=== PATIENT | female | born 1995 | race Caucasian/White ===

== ENCOUNTER 2016-11-07 18:55 | Emergency (ER) | payer OTHER ==
[~2016-11-07 18:55] MED LIST: ACET50TA PO; IBUP-1114 PO; PRENTAB9 PO
--- NOTE | 2016-11-07 20:33 | EDDOCDS ---
Physician Documentation [facility] Name: Evelyne Aranda Age: 21 yrs Sex: Female : 1995 Arrival Date: 11/07/2016 Time: 18:55 Bed 11 Private MD: Disposition: 11/07 20:24 Critical Care: Critical care not applicable. le Disposition: 11/07/16 20:20 Discharged to Home/Self Care. Impression: Dizziness and giddiness - near syncope. - Condition is Stable. - Discharge Instructions: Dizziness, Near-Syncope. - Medication Reconciliation, Local Pharmacy Hours form. - Follow up: [facility] - Adults; When: Call to arrange an appointment; Reason: Recheck today's complaints, Continuance of care. - Problem is an acute exacerbation. - Symptoms are resolved. - Notes: Keep hydrated Make sure you're eating nutritious regular meals Return to the ED for any further concerns Historical: - Allergies: No known drug Allergies; - Home Meds: 1. antidepressant - PMHx: Depression; - PSHx: none; - Social history: Smoking status: Patient states former smoker of tobacco. No barriers to communication noted, The patient speaks fluent [place], Speaks appropriately for age. - Family history: Not pertinent. - : The pt / caregiver states he / she is not on anticoagulants. Home medication list is obtained from the patient, [employer] import data. - Exposure Risk Screening:: None identified. 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 9 in. (175.26 cm) (R); 19:16 Temp 98.6(TE); js15 19:20 Pulse 60 MON; Pulse Ox 99% ; js15 19:20 BP 103 / 55 RA Supine (auto/reg); js15 19:28 Pulse 58 MON; Pulse Ox 99% ; js15 19:28 BP 104 / 62 RA Sitting (auto/reg); js15 19:29 Pulse 62 MON; Pulse Ox 100% ; js15 19:30 BP 105 / 62 (auto/); js15 19:33 Pulse 58 MON; Pulse Ox 100% ; js15 19:33 BP 111 / 63 RA Standing (auto/reg); js15 19:45 BP 105 / 61 (auto/); js15 19:45 Pulse 62 MON; Pulse Ox 100% ; js15 20:00 BP 110 / 61 (auto/); js15 20:00 Pulse 60 MON; Pulse Ox 99% ; js15 20:15 BP 117 / 60 (auto/); js15 20:15 Pulse 56 MON; Pulse Ox 99% ; js15 20:26 BP 113 / 67 (auto/); js15 20:26 Pulse 58 MON; Resp 20; Temp 98.7(TE); Pulse Ox 98% on R/A; Pain 0/10; js15 19:02 Body Mass Index 20.67 (63.50 kg, 175.26 cm) kr3 MDM: 19:28 Orthostatic VS ordered. le 19:28 UCG by Nursing ordered. le 19:29 ECG WITH READING ER PHYS+CARDIAG ordered. EDMS 19:30 Chest, 2 View (pa\E\lat) Ordered. EDMS 20:16 Financial registration complete. dimitri Point of Care Testing: Urine : 19:51 hCG Reading: Negative; Control Reading: Positive; js15 Ranges: Signatures: Dispatcher [employer] EDYamini Rowe, GEO ORAL HEALTH THERAPISTOlga Rios,RN RN Lakesha Chang MTDD
--- NOTE | 2016-11-07 20:33 | EDDOCDS ---
Nurse's Notes [facility] Name: Evelyne Aranda Age: 21 yrs Sex: Female : 1995 Arrival Date: 11/07/2016 Time: 18:55 Bed 11 Private MD: Diagnosis: Dizziness and giddiness-near syncope Presentation: 11/07 19:06 Presenting complaint: EMS states: Pt was at work and walking to the bathroom and became js15 dizzy and had blurred vision; denies syncope but states that she sat down to keep from falling. Adult Sepsis Screening: The patient does not have new or worsening altered mentation. Patient's respiratory rate is less than 22. Systolic blood pressure is greater than 100. Suicide/Homicide risk assessment- the patient denies having any suicidal and/or homicidal ideations and does not present with any other emotional, behavioral or mental health complaints. Transition of care: patient was not received from another setting of care. 19:06 Acuity: JORDON Level 3 [facility] 19:06 Method Of Arrival: Ambulance [facility] 19:16 Adult Sepsis Screening: Patient has a qSOFA score of 0- Negative Sepsis Screen. js15 Status: Patient is not a restaurant service manager or dependent. Triage Assessment: 19:08 General: Appears in no apparent distress, Behavior is appropriate for age, cooperative. js15 Pain: Denies pain. HIV screening NA for this visit Offered previously. The patient is triaged at the bedside. See Assessment in Nurses Notes section of ED record. Neurological: Level of Consciousness is awake, alert, obeys commands, Oriented to person, place, time. Respiratory: Airway is patent Respiratory effort is even, unlabored, Respiratory pattern is regular, symmetrical. Derm: Skin is dry, Skin is pale, Skin temperature is warm. 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 antidepressant - PMHx: Depression; - PSHx: none; - Social history: Smoking status: Patient states former smoker of tobacco. No barriers to communication noted, The patient speaks fluent Burmese, Speaks appropriately for age. - Family history: Not pertinent. - : The pt / caregiver states he / she is not on anticoagulants. Home medication list is obtained from the patient, [email or web address] import data. - Exposure Risk Screening:: None identified. Screenin:12 Screening information is obtained from the patient. Fall risk: No risks identified. js15 Assistance ADL's: requires no assistance with activities of daily living. Abuse/DV Screen: The patient / caregiver reports he/she is: not in a situation that causes fear, pain or injury. Nutritional screening: No deficits noted. Advance Directives: There is no active DNR order. home support is adequate. Assessment: 19:30 General: see triage note. js15 20:28 Reassessment: Patient appears in no apparent distress at this time. Patient denies pain js15 at this time. Pt resting on stretcher with significant other at bedside; respirations even and unlabored; skin pale, warm, dry; cardiac rhythm is regular. . Vital Signs: 19:02 BP 128 / 65; Pulse 68; Pulse Ox 99% on R/A; Weight 63.5 kg (R); Height 5 ft. 9 in. kr3 (175.26 cm) (R); 19:16 Temp 98.6(TE); js15 19:20 Pulse 60 MON; Pulse Ox 99% ; js15 19:20 BP 103 / 55 RA Supine (auto/reg); js15 19:28 Pulse 58 MON; Pulse Ox 99% ; js15 19:28 BP 104 / 62 RA Sitting (auto/reg); js15 19:29 Pulse 62 MON; Pulse Ox 100% ; js15 19:30 BP 105 / 62 (auto/); js15 19:33 Pulse 58 MON; Pulse Ox 100% ; js15 19:33 BP 111 / 63 RA Standing (auto/reg); js15 19:45 BP 105 / 61 (auto/); js15 19:45 Pulse 62 MON; Pulse Ox 100% ; js15 20:00 BP 110 / 61 (auto/); js15 20:00 Pulse 60 MON; Pulse Ox 99% ; js15 20:15 BP 117 / 60 (auto/); js15 20:15 Pulse 56 MON; Pulse Ox 99% ; js15 20:26 BP 113 / 67 (auto/); js15 20:26 Pulse 58 MON; Resp 20; Temp 98.7(TE); Pulse Ox 98% on R/A; Pain 0/10; js15 19:02 Body Mass Index 20.67 (63.50 kg, 175.26 cm) kr3 Vitals: 19:02 Log In Time N/A - ambulance arrival. kr3 ED Course: 19:01 Patient visited by Irene Pablo, Credit Investigator. ml3 19:01 Patient moved to Waiting ml3 19:01 Patient moved to 11 kr3 19:07 Triage Initiated js15 19:16 [facility] Campbell [facility] le 19:30 Patient visited by Yamini Campbell FNP. le 19:30 Patient visited by Yamini Campbell FNP. le 19:33 EKG done. (by ED staff). Reviewed by Yamini UGARDADO. waqar 20:20 [facility] is Referral Physician. le 20:26 The patient / caregiver is instructed regarding the plan of care and ED course. js15 20:26 No IV's were initiated during this patient's visit. No procedures done that require js15 assistance. Point of Care Testing: Urine : 19:51 hCG Reading: Negative; Control Reading: Positive; js15 Ranges: Order Results: There are currently no results for this order. Outcome: 20:20 Discharge ordered by Provider. le 20:26 Discharge Assessment: Patient awake, alert and oriented x 3. No cognitive and/or js15 functional deficits noted. Patient verbalized understanding of disposition instructions. patient administered narcotics - no. The following High Risk Discharge criteria are identified: None. Discharged to home ambulatory, with significant other. Condition: unchanged. Discharge instructions given to patient, Instructed on discharge instructions, follow up and referral plans. Demonstrated understanding of instructions, Pt was receptive of discharge instructions/ teaching. No special radiology studies were completed. Property sent home with patient. 20:32 Patient left the ED. js15 Signatures: Irene Pablo, Credit Investigator Unit ml3 Janell Negrete,RN RN Yamini Lombardi FNP FNP le Ewald, Destiny, FABRIZIO MARKETING SEGMENT MANAGER Olga SantoyoRN RN js15 MTDD
--- NOTE | 2016-11-08 06:37 | ECGEPIP ---
Stationary ECG Study [facility] - ED Test Date: 2016-11-07 Pat Name: DEBORA CARRILLO Department: Room: - Gender: F City Superintendent: MurguiaB: 1995 Requested By: LESLIE GUARDADO Order Number: [id number] Reading MD: Zak Chavez Measurements Intervals [place] Rate: 55 P: 37 [place]: 131 QRS: 42 QRSD: 87 T: 23 QT: 418 QTc: 402 Interpretive Statements SINUS BRADYCARDIA BENIGN EARLY REPOLARIZATION NO PRIORS Electronically Signed On 11-08-2016 6:37:19 EST by Zak Chavez
--- NOTE | 2016-11-08 08:24 | REP ---
Chest x-ray: Two views. History: Near syncope. . Comparison study: No comparison . Findings: The lungs are well inflated and free of infiltrate. The pleural angles are sharp. The heart size is normal. Pulmonary vasculature is not increased. No significant bony abnormality is seen. Incidental note is made of an azygos lobe. EKG monitoring electrodes are seen. Impression: Negative chest x-ray. Signed by Marshall Thomas MD 11/08/2016 08:15 A
--- NOTE | 2016-11-09 21:33 | EDDOCDS ---
Physician Documentation [facility] Name: Evelyne Aranda Age: 21 yrs Sex: Female : 1995 Arrival Date: 11/07/2016 Time: 18:55 Bed 11 Private MD: Disposition: 11/07 20:24 Critical Care: Critical care not applicable. le Disposition: 11/07/16 20:20 Discharged to Home/Self Care. Impression: Dizziness and giddiness - near syncope. - Condition is Stable. - Discharge Instructions: Dizziness, Near-Syncope. - Medication Reconciliation, Local Pharmacy Hours form. - Follow up: [facility] - Adults; When: Call to arrange an appointment; Reason: Recheck today's complaints, Continuance of care. - Problem is an acute exacerbation. - Symptoms are resolved. - Notes: Keep hydrated Make sure you're eating nutritious regular meals Return to the ED for any further concerns Historical: - Allergies: No known drug Allergies; - Home Meds: 1. antidepressant - PMHx: Depression; - PSHx: none; - Social history: Smoking status: Patient states former smoker of tobacco. No barriers to communication noted, The patient speaks fluent Colombian, Speaks appropriately for age. - Family history: Not pertinent. - : The pt / caregiver states he / she is not on anticoagulants. Home medication list is obtained from the patient, [employer] import data. - Exposure Risk Screening:: None identified. 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 9 in. (175.26 cm) (R); 19:16 Temp 98.6(TE); js15 19:20 Pulse 60 MON; Pulse Ox 99% ; js15 19:20 BP 103 / 55 RA Supine (auto/reg); js15 19:28 Pulse 58 MON; Pulse Ox 99% ; js15 19:28 BP 104 / 62 RA Sitting (auto/reg); js15 19:29 Pulse 62 MON; Pulse Ox 100% ; js15 19:30 BP 105 / 62 (auto/); js15 19:33 Pulse 58 MON; Pulse Ox 100% ; js15 19:33 BP 111 / 63 RA Standing (auto/reg); js15 19:45 BP 105 / 61 (auto/); js15 19:45 Pulse 62 MON; Pulse Ox 100% ; js15 20:00 BP 110 / 61 (auto/); js15 20:00 Pulse 60 MON; Pulse Ox 99% ; js15 20:15 BP 117 / 60 (auto/); js15 20:15 Pulse 56 MON; Pulse Ox 99% ; js15 20:26 BP 113 / 67 (auto/); js15 20:26 Pulse 58 MON; Resp 20; Temp 98.7(TE); Pulse Ox 98% on R/A; Pain 0/10; js15 19:02 Body Mass Index 20.67 (63.50 kg, 175.26 cm) kr3 MDM: 19:28 Orthostatic VS ordered. le 19:28 UCG by Nursing ordered. le 19:29 ECG WITH READING ER PHYS+CARDIAG ordered. EDMS 19:30 Chest, 2 View (pa\E\lat) Ordered. EDMS 20:16 Financial registration complete. gjb 21:21 [facility] Payment Agreement was scanned into [employer] and attached to record. gb 21:55 T-Sheet-- Draft Copy was scanned into [employer] and attached to record. r 11/08 10:25 ECG/EKG was scanned into [employer] and attached to record. elizabeth Point of Care Testing: Urine : 11/07 19:51 hCG Reading: Negative; Control Reading: Positive; js15 Ranges: Signatures: Dispatcher [employer]Host EDMS Dia Woo, Reg Reg Yamini Hill, Olga Hogan,RN RN js15 Lakesha Sahu Kathie klr The chart was reviewed and I authenticate all verbal orders and agree with the evaluation and treatment provided.Attachments: 21:21 [facility] [place] gb 21:55 T-Sheet-- Draft Copy r 11/08 10:25 ECG/EKG gb Chart Complete MTDD
--- NOTE | 2016-11-09 21:33 | EDDOCDS ---
Physician Documentation Name: Evelyne Aranda Age: 21 yrs Sex: Female : 1995 Arrival Date: 11/07/2016 Time: 18:55 Bed 11 Private MD: Disposition: 11/07 20:24 Critical Care: Critical care not applicable. le Disposition: 11/07/16 20:20 Discharged to Home/Self Care. Impression: Dizziness and giddiness - near syncope. - Condition is Stable. - Discharge Instructions: Dizziness, Near-Syncope. - Medication Reconciliation, Local Pharmacy Hours form. - Follow up: [facility] - Adults; When: Call to arrange an appointment; Reason: Recheck today's complaints, Continuance of care. - Problem is an acute exacerbation. - Symptoms are resolved. - Notes: Keep hydrated Make sure you're eating nutritious regular meals Return to the ED for any further concerns Historical: - Allergies: No known drug Allergies; - Home Meds: 1. antidepressant - PMHx: Depression; - PSHx: none; - Social history: Smoking status: Patient states former smoker of tobacco. No barriers to communication noted, The patient speaks fluent Trinidadian, Speaks appropriately for age. - Family history: Not pertinent. - : The pt / caregiver states he / she is not on anticoagulants. Home medication list is obtained from the patient, [employer] import data. - Exposure Risk Screening:: None identified. 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 9 in. (175.26 cm) (R); 19:16 Temp 98.6(TE); js15 19:20 Pulse 60 MON; Pulse Ox 99% ; js15 19:20 BP 103 / 55 RA Supine (auto/reg); js15 19:28 Pulse 58 MON; Pulse Ox 99% ; js15 19:28 BP 104 / 62 RA Sitting (auto/reg); js15 19:29 Pulse 62 MON; Pulse Ox 100% ; js15 19:30 BP 105 / 62 (auto/); js15 19:33 Pulse 58 MON; Pulse Ox 100% ; js15 19:33 BP 111 / 63 RA Standing (auto/reg); js15 19:45 BP 105 / 61 (auto/); js15 19:45 Pulse 62 MON; Pulse Ox 100% ; js15 20:00 BP 110 / 61 (auto/); js15 20:00 Pulse 60 MON; Pulse Ox 99% ; js15 20:15 BP 117 / 60 (auto/); js15 20:15 Pulse 56 MON; Pulse Ox 99% ; js15 20:26 BP 113 / 67 (auto/); js15 20:26 Pulse 58 MON; Resp 20; Temp 98.7(TE); Pulse Ox 98% on R/A; Pain 0/10; js15 19:02 Body Mass Index 20.67 (63.50 kg, 175.26 cm) kr3 MDM: 19:28 Orthostatic VS ordered. le 19:28 UCG by Nursing ordered. le 19:29 ECG WITH READING ER PHYS+CARDIAG ordered. EDMS 19:30 Chest, 2 View (pa\E\lat) Ordered. EDMS 20:16 Financial registration complete. gjb 21:21 [facility] Payment Agreement was scanned into [employer] and attached to record. gb 21:55 T-Sheet-- Draft Copy was scanned into [employer] and attached to record. r 11/08 10:25 ECG/EKG was scanned into [employer] and attached to record. elizabeth Point of Care Testing: Urine : 11/07 19:51 hCG Reading: Negative; Control Reading: Positive; js15 Ranges: Signatures: Dispatcher [employer] EDMS Dia Woo, Reg Reg Yamini Hill, Olga Hogan,RN RN js15 Lakesha Sahu Kathie klr The chart was reviewed and I authenticate all verbal orders and agree with the evaluation and treatment provided.Attachments: 21:21 [facility] Payment Agreement gb 21:55 T-Sheet-- Draft Copy r 11/08 10:25 ECG/EKG gb Chart Complete MTDD
--- NOTE | 2016-11-09 21:33 | EDDOCDS ---
Nurse's Notes [facility] Name: Evelyne Aranda Age: 21 yrs Sex: Female : 1995 Arrival Date: 11/07/2016 Time: 18:55 Bed 11 Private MD: Diagnosis: Dizziness and giddiness-near syncope Presentation: 11/07 19:06 Presenting complaint: EMS states: Pt was at work and walking to the bathroom and became js15 dizzy and had blurred vision; denies syncope but states that she sat down to keep from falling. Adult Sepsis Screening: The patient does not have new or worsening altered mentation. Patient's respiratory rate is less than 22. Systolic blood pressure is greater than 100. Suicide/Homicide risk assessment- the patient denies having any suicidal and/or homicidal ideations and does not present with any other emotional, behavioral or mental health complaints. Transition of care: patient was not received from another setting of care. 19:06 Acuity: JORDON Level 3 [facility] 19:06 Method Of Arrival: Ambulance [facility] 19:16 Adult Sepsis Screening: Patient has a qSOFA score of 0- Negative Sepsis Screen. 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 Triage Assessment: 19:08 General: Appears in no apparent distress, Behavior is appropriate for age, cooperative. js15 Pain: Denies pain. HIV screening NA for this visit Offered previously. The patient is triaged at the bedside. See Assessment in Nurses Notes section of ED record. Neurological: Level of Consciousness is awake, alert, obeys commands, Oriented to person, place, time. Respiratory: Airway is patent Respiratory effort is even, unlabored, Respiratory pattern is regular, symmetrical. Derm: Skin is dry, Skin is pale, Skin temperature is warm. 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 antidepressant - PMHx: Depression; - PSHx: none; - Social history: Smoking status: Patient states former smoker of tobacco. No barriers to communication noted, The patient speaks fluent Slovenian, Speaks appropriately for age. - Family history: Not pertinent. - : The pt / caregiver states he / she is not on anticoagulants. Home medication list is obtained from the patient, [employer] import data. - Exposure Risk Screening:: None identified. Screenin:12 Screening information is obtained from the patient. Fall risk: No risks identified. js15 Assistance ADL's: requires no assistance with activities of daily living. Abuse/DV Screen: The patient / caregiver reports he/she is: not in a situation that causes fear, pain or injury. Nutritional screening: No deficits noted. Advance Directives: There is no active DNR order. home support is adequate. Assessment: 19:30 General: see triage note. js15 20:28 Reassessment: Patient appears in no apparent distress at this time. Patient denies pain js15 at this time. Pt resting on stretcher with significant other at bedside; respirations even and unlabored; skin pale, warm, dry; cardiac rhythm is regular. . Vital Signs: 19:02 BP 128 / 65; Pulse 68; Pulse Ox 99% on R/A; Weight 63.5 kg (R); Height 5 ft. 9 in. kr3 (175.26 cm) (R); 19:16 Temp 98.6(TE); js15 19:20 Pulse 60 MON; Pulse Ox 99% ; js15 19:20 BP 103 / 55 RA Supine (auto/reg); js15 19:28 Pulse 58 MON; Pulse Ox 99% ; js15 19:28 BP 104 / 62 RA Sitting (auto/reg); js15 19:29 Pulse 62 MON; Pulse Ox 100% ; js15 19:30 BP 105 / 62 (auto/); js15 19:33 Pulse 58 MON; Pulse Ox 100% ; js15 19:33 BP 111 / 63 RA Standing (auto/reg); js15 19:45 BP 105 / 61 (auto/); js15 19:45 Pulse 62 MON; Pulse Ox 100% ; js15 20:00 BP 110 / 61 (auto/); js15 20:00 Pulse 60 MON; Pulse Ox 99% ; js15 20:15 BP 117 / 60 (auto/); js15 20:15 Pulse 56 MON; Pulse Ox 99% ; js15 20:26 BP 113 / 67 (auto/); js15 20:26 Pulse 58 MON; Resp 20; Temp 98.7(TE); Pulse Ox 98% on R/A; Pain 0/10; js15 19:02 Body Mass Index 20.67 (63.50 kg, 175.26 cm) kr3 Vitals: 19:02 Log In Time N/A - ambulance arrival. kr3 ED Course: 19:01 Patient visited by Irene Pablo, Cordwainer. ml3 19:01 Patient moved to Waiting ml3 19:01 Patient moved to 11 kr3 19:07 Triage Initiated js15 19:16 Yamini Campbell FNP is PHCP. le 19:30 Patient visited by Yamini Campbell FNP. le 19:30 Patient visited by Yamini Campbell FNP. le 19:33 EKG done. (by ED staff). Reviewed by Yamini GUARDADO. waqar 20:20 [facility] is Referral Physician. le 20:26 The patient / caregiver is instructed regarding the plan of care and ED course. js15 20:26 No IV's were initiated during this patient's visit. No procedures done that require js15 assistance. 21:21 Patient name changed from Evelyne\S\R\S\Rosi\S\ to Evelyne\S\Jo\S\Rosi. EDMS 21:21 [facility] Payment Agreement was scanned into [employer] and attached to record. 21:55 T-Sheet-- Draft Copy was scanned into [employer] and attached to record. klr 11/08 06:54 EKG-ADULT Returned. EDMS 08:45 Chest, 2 View (pa\E\lat) Returned. EDMS 10:25 ECG/EKG was scanned into [employer] and attached to record. gb Point of Care Testing: Urine : 11/07 19:51 hCG Reading: Negative; Control Reading: Positive; js15 Ranges: Order Results: Radiology Order: EKG-ADULT Test: EKG-ADULT REASON FOR EXAMINATION: near syncope; Stationary ECG Study; [facility] - ED; ; Test Date: 2016-11-07; Pat Name: EVELYNE ARANDA Department:; Room: -; Gender: F Ob/Gyn Doctor: genoveva; : 1995 Requested By: YAMINI GUARDADO; Order Number: [id number] Reading MD: Zak Chavez; Measurements; Intervals [place]; Rate: 55 P: 37; [place]: 131 QRS: 42; QRSD: 87 T: 23; QT: 418; QTc: 402; Interpretive Statements; SINUS BRADYCARDIA; BENIGN EARLY REPOLARIZATION; NO PRIORS; Electronically Signed On 11-08-2016 6:37:19 EST by Zak Chavez; Radiology Order: Chest, 2 View (pa\E\lat) Test: Chest, 2 View (pa\E\lat) REASON FOR EXAMINATION: near syncope; Chest x-ray: Two views.; ; History: Near syncope. .; ; Comparison study: No comparison .; ; Findings: The lungs are well inflated and free of infiltrate. The pleural; angles are sharp. The heart size is normal. Pulmonary vasculature is not; increased. No significant bony abnormality is seen. Incidental note is made of; an azygos lobe. EKG monitoring electrodes are seen.; ; Impression:; ; Negative chest x-ray.; ; ; Signed by; Marshall Thomas MD 11/08/2016 08:15 A; Outcome: 20:20 Discharge ordered by Provider. le 20:26 Discharge Assessment: Patient awake, alert and oriented x 3. No cognitive and/or js15 functional deficits noted. Patient verbalized understanding of disposition instructions. patient administered narcotics - no. The following High Risk Discharge criteria are identified: None. Discharged to home ambulatory, with significant other. Condition: unchanged. Discharge instructions given to patient, Instructed on discharge instructions, follow up and referral plans. Demonstrated understanding of instructions, Pt was receptive of discharge instructions/ teaching. No special radiology studies were completed. Property sent home with patient. 20:32 Patient left the ED. js15 Signatures: Dispatcher [employer] EDMS Dia Woo, Reg Reg Irene Pablo, Cordwainer Unit ml3 Janell Negrete,RN RN kr3 Yamini Campbell, BLACK MILL OPERATOR BLACK MILL OPERATOR Susana Gamble, GAME PROGRAMMER GAME PROGRAMMER Olga Santoyo,RN RN js15 Danita Ramirez Chart Complete MTDD
== END 2016-11-07 20:32 | disposition home or self-care (01) ==
LOC: M ED 18:55
DX: R55 Syncope and collapse (principal); R42 Dizziness and giddiness; F32.9 Major depressive disorder, single episode, unspecified; Z87.891 Personal history of nicotine dependence

== ENCOUNTER → 2017-07-11 | Outpatient (CLI) | payer OTHER ==
[2017-07-11 12:34] LABS: BASO % 0.7 % (0.0-1.0); EOS # 0.2 10^3/uL (0.0-0.50); EOS % 4.3 % (0.0-3.0); IMMATURE GRANULOCYTE % 0.2 % (0-0); LYMPH # 1.5 10^3/uL (1.5-6.5); LYMPH % 28.3 % (24.0-44.0); MEAN CORPUSCULAR HEMOGLOBIN 30.1 pg (27.0-33.0); MEAN CORPUSCULAR HGB CONC 33.6 g/dl (32.0-36.5); MEAN CORPUSCULAR VOLUME 89.6 fl (80.0-96.0); MONO # 0.3 10^3/uL (0.0-0.8); MONO % 5.8 % (0.0-5.0); NEUTROPHILS # 3.2 10^3/uL (1.8-7.7); NEUTROPHILS % 60.7 % (36.0-66.0); RED CELL DISTRIBUTION WIDTH 13.2 % (11.5-14.5); WHITE BLOOD COUNT 5.3 10^3/uL (4.0-10.0)
[2017-07-11 13:09] LABS: ALBUMIN 3.5 GM/DL (3.2-5.2); ALBUMIN/GLOBULIN RATIO 0.97 (1.00-1.93); ALKALINE PHOSPHATASE 70 U/L (45-117); ALT/SGPT 17 U/L (12-78); ANION GAP 6 MEQ/L (8-16); AST/SGOT 7 U/L (15-37); BILIRUBIN,TOTAL 0.2 MG/DL (0.2-1.0); BLOOD UREA NITROGEN 11 MG/DL (7-18); CALCIUM LEVEL 8.6 MG/DL (8.5-10.1); CARBON DIOXIDE LEVEL 26 MEQ/L (21-32); CHLORIDE LEVEL 107 MEQ/L (98-107); CHOLESTEROL LEVEL 106 MG/DL (<200); FREE T4 1.08 NG/DL (0.76-1.46); GLOMERULAR FILTRATION RATE > 60.0 (>60); GLUCOSE, FASTING 91 MG/DL (70-105); POTASSIUM SERUM 4.2 MEQ/L (3.5-5.1); SODIUM LEVEL 139 MEQ/L (136-145); TOTAL PROTEIN 7.1 GM/DL (6.4-8.2); TRIGLYCERIDES LEVEL 37 MG/DL (<150)
== END ==
LOC: M LAB 11:49
PROVIDERS: ATTEND Physician Assistant
DX: Z00.00 Encounter for general adult medical examination without abnormal findings (principal)

== ENCOUNTER → 2017-12-18 | Outpatient (CLI) | payer OTHER ==
[2017-12-18 14:37] LABS: CONTROL LINE HCG INT CTR LINE PRESENT
[2017-12-18 14:46] LABS: HCG, SERUM QUANTITATIVE 702 MIU/ML
[2017-12-18 15:06] LABS: HCG, SERUM QUALITATIVE POSITIVE (NEGATIVE)
== END ==
LOC: M LAB 13:00
DX: Z34.90 Encounter for supervision of normal pregnancy, unspecified, unspecified trimester (principal)
CPT/HCPCS: 84703

== ENCOUNTER → 2018-02-26 | Outpatient (CLI) | payer MEDICAID ==
[2018-02-26 11:26] LABS: BASO % 0.5 % (0.0-1.0); EOS # 0.1 10^3/uL (0.0-0.50); EOS % 1.8 % (0.0-3.0); HEMATOCRIT 37.6 % (36.0-47.0); IMMATURE GRANULOCYTE % 0.3 % (0-3.0); LYMPH # 1.7 10^3/uL (1.5-6.5); LYMPH % 21.5 % (24.0-44.0); MEAN CORPUSCULAR HEMOGLOBIN 30.1 pg (27.0-33.0); MEAN CORPUSCULAR HGB CONC 34.6 g/dl (32.0-36.5); MONO # 0.5 10^3/uL (0.0-0.8); MONO % 6.1 % (0.0-5.0); NEUTROPHILS # 5.5 10^3/uL (1.8-7.7); NEUTROPHILS % 69.8 % (36.0-66.0); PLATELET COUNT, AUTOMATED 240 10^3/uL (150-450); RED BLOOD COUNT 4.32 10^6/uL (4.00-5.40); RED CELL DISTRIBUTION WIDTH 13.2 % (11.5-14.5); WHITE BLOOD COUNT 7.9 10^3/uL (4.0-10.0)
[2018-02-26 13:00] LABS: CHLAMYDIA DNA AMPLIFICATION NEGATIVE (NEGATIVE); GC DNA AMPLIFICATION NEGATIVE (NEGATIVE)
[2018-02-28 11:16] LABS: RUBELLA IgG QUALITATIVE IMMUNE (IMMUNE)
[2018-02-28 11:17] LABS: HBsAg Prenatal NEGATIVE (NEGATIVE)
[2018-02-28 11:46] LABS: HIV 1&2 SCREEN CENTAUR NEGATIVE (NEGATIVE)
== END ==
LOC: M LAB 10:53
DX: Z34.81 Encounter for supervision of other normal pregnancy, first trimester (principal); Z3A.09 9 weeks gestation of pregnancy
CPT/HCPCS: 86762

== ENCOUNTER → 2018-02-26 | Outpatient (CLI) | payer MEDICAID, OTHER ==
[2018-02-26 11:36] LABS: AMORPHOUS SEDIMENT MODERATE (NEGATIVE); APPEARANCE, URINE CLOUDY (CLEAR); BACTERIA, URINE AUTO 1+ (NEGATIVE); BILIRUBIN, URINE AUTO NEGATIVE (NEGATIVE); BLOOD, URINE BLOOD NEGATIVE (NEGATIVE); COLOR, URINE YELLOW (YELLOW); GLUCOSE, URINE (UA) AUTO NEGATIVE (NEGATIVE); KETONE, URINE AUTO NEGATIVE (NEGATIVE); LEUKOCYTE ESTERASE, URINE AUTO NEGATIVE (NEGATIVE); NITRITE, URINE AUTO NEGATIVE (NEGATIVE); PROTEIN, URINE AUTO NEGATIVE (NEGATIVE); RBC, URINE AUTO 3 /HPF (0-3); SPECIFIC GRAVITY URINE AUTO 1.015 (1.002-1.035); SQUAMOUS EPITHELIAL CELL UR AU 4 /HPF (0-6); UROBILINOGEN, URINE AUTO 0.2 mg/dL (0.0-2.0); WBC, URINE AUTO 1 /HPF (0-3)
[2018-02-26 11:53] LABS: ESTIMATED AVERAGE GLUCOSE 97 MG/DL (60-110)
[2018-02-26 12:04] LABS: ALBUMIN 3.5 GM/DL (3.2-5.2); ALBUMIN/GLOBULIN RATIO 0.95 (1.00-1.93); ALKALINE PHOSPHATASE 72 U/L (45-117); ALT/SGPT 17 U/L (12-78); ANION GAP 6 MEQ/L (8-16); AST/SGOT 9 U/L (7-37); BILIRUBIN,TOTAL 0.3 MG/DL (0.2-1.0); BLOOD UREA NITROGEN 7 MG/DL (7-18); CALCIUM LEVEL 8.6 MG/DL (8.5-10.1); CARBON DIOXIDE LEVEL 25 MEQ/L (21-32); CHLORIDE LEVEL 108 MEQ/L (98-107); CHOLESTEROL LEVEL 159 MG/DL (<200); CHOLESTEROL RISK RATIO 2.944 (<5); FREE T4 1.12 NG/DL (0.76-1.46); GLOMERULAR FILTRATION RATE > 60.0 (>60); GLUCOSE, FASTING 82 MG/DL (70-100); HDL CHOLESTEROL 54 MG/DL (>40); LDL CHOLESTEROL 86.2 MG/DL (<100); NON-HDL-C 105 MG/DL; SODIUM LEVEL 139 MEQ/L (136-145); THYROID STIMULATING HORMONE 0.526 uIU/ML (0.358-3.740); TOTAL PROTEIN 7.2 GM/DL (6.4-8.2); TRIGLYCERIDES LEVEL 94 MG/DL (<150)
[2018-02-26 14:11] LABS: BASO % 0.5 % (0.0-1.0); EOS # 0.2 10^3/uL (0.0-0.50); HEMATOCRIT 36.7 % (36.0-47.0); IMMATURE GRANULOCYTE % 0.3 % (0-3.0); LYMPH # 1.6 10^3/uL (1.5-6.5); LYMPH % 20.5 % (24.0-44.0); MEAN CORPUSCULAR HEMOGLOBIN 30.7 pg (27.0-33.0); MEAN CORPUSCULAR HGB CONC 35.4 g/dl (32.0-36.5); MEAN CORPUSCULAR VOLUME 86.6 fl (80.0-96.0); MONO # 0.5 10^3/uL (0.0-0.8); MONO % 5.7 % (0.0-5.0); NEUTROPHILS # 5.6 10^3/uL (1.8-7.7); PLATELET COUNT, AUTOMATED 259 10^3/uL (150-450); RED BLOOD COUNT 4.24 10^6/uL (4.00-5.40); RED CELL DISTRIBUTION WIDTH 13.2 % (11.5-14.5); WHITE BLOOD COUNT 7.9 10^3/uL (4.0-10.0)
[2018-02-28 11:11] LABS: TOTAL 25(OH) VITAMIN D 15.7 NG/ML (30.0-100.0)
== END ==
LOC: M LAB 10:49
DX: Z71.2 Person consulting for explanation of examination or test findings (principal)
CPT/HCPCS: 84443

== ENCOUNTER → 2018-03-30 | Outpatient (CLI) | payer MEDICAID | LOC: M RAD 07:05 | DX: Z36.89 Encounter for other specified antenatal screening (principal); Z3A.18 18 weeks gestation of pregnancy | CPT/HCPCS: 76811 ==

== ENCOUNTER → 2018-05-19 | Outpatient (CLI) | payer OTHER ==
[2018-05-19 14:24] LABS: HEMATOCRIT 35.4 % (36.0-47.0); HEMOGLOBIN 11.6 g/dl (12.0-15.5); MEAN CORPUSCULAR HEMOGLOBIN 30.7 pg (27.0-33.0); MEAN CORPUSCULAR HGB CONC 32.8 g/dl (32.0-36.5); MEAN CORPUSCULAR VOLUME 93.7 fl (80.0-96.0); PLATELET COUNT, AUTOMATED 242 10^3/uL (150-450); RED BLOOD COUNT 3.78 10^6/uL (4.00-5.40); RED CELL DISTRIBUTION WIDTH 14.4 % (11.5-14.5); WHITE BLOOD COUNT 8.3 10^3/uL (4.0-10.0)
[2018-05-19 14:45] LABS: GLUCOSE CHALLENGE TEST 1 HOUR 136 MG/DL (LESS THAN 140)
== END ==
LOC: M SMT 09:25
DX: Z36.89 Encounter for other specified antenatal screening (principal); Z3A.00 Weeks of gestation of pregnancy not specified
CPT/HCPCS: 82950

== ENCOUNTER → 2018-05-25 | Outpatient (CLI) | payer OTHER ==
[2018-05-25 07:00] LABS: GLUCOSE, FASTING 86 MG/DL (LESS THAN 95)
[2018-05-25 08:39] LABS: 1 HR GLUCOSE 192 MG/DL (LESS THAN 180)
[2018-05-25 08:57] LABS: 2 HR GLUCOSE 134 MG/DL (LESS THAN 155)
[2018-05-25 10:05] LABS: 3 HR GLUCOSE 112 MG/DL (LESS THAN 140)
== END ==
LOC: M LAB 06:19
DX: Z36.89 Encounter for other specified antenatal screening (principal); Z3A.00 Weeks of gestation of pregnancy not specified
CPT/HCPCS: 82951

== ENCOUNTER 2018-06-25 21:21 | Outpatient (CLI) | payer OTHER | END 2018-06-25 22:40 | disposition home or self-care (01) | LOC: M LDO 21:21 | DX: O36.8130 Decreased fetal movements, third trimester, not applicable or unspecified (principal); Z3A.31 31 weeks gestation of pregnancy; O99.343 Other mental disorders complicating pregnancy, third trimester; F32.9 Major depressive disorder, single episode, unspecified; F41.9 Anxiety disorder, unspecified | CPT/HCPCS: 76815 ==

== ENCOUNTER → 2018-07-06 | Outpatient (CLI) | payer OTHER | LOC: M SMT 15:10 | DX: O26.843 Uterine size-date discrepancy, third trimester (principal); Z3A.32 32 weeks gestation of pregnancy | CPT/HCPCS: 76816 ==

== ENCOUNTER → 2018-07-27 | Outpatient (REF) | payer OTHER | LOC: M LAB REF 17:10 | DX: Z34.83 Encounter for supervision of other normal pregnancy, third trimester (principal); Z36.85 Encounter for antenatal screening for Streptococcus B | CPT/HCPCS: 87081 ==

== ENCOUNTER 2018-08-17 16:23 | Outpatient (CLI) | payer OTHER | END 2018-08-17 19:23 | disposition home or self-care (01) | LOC: M LDO 16:23 | DX: O36.8130 Decreased fetal movements, third trimester, not applicable or unspecified (principal); Z3A.29 29 weeks gestation of pregnancy | CPT/HCPCS: 59025 ==

== ENCOUNTER 2018-08-22 18:13 | Inpatient (IN) | payer OTHER ==
[2018-08-22] MEDS ORDERED: LR 1,000 ML IV (18:47)
[2018-08-22 19:25] LABS: HEMOGLOBIN 11.7 g/dl (12.0-15.5); MEAN CORPUSCULAR HEMOGLOBIN 30.7 pg (27.0-33.0); MEAN CORPUSCULAR HGB CONC 33.4 g/dl (32.0-36.5); MEAN CORPUSCULAR VOLUME 91.9 fl (80.0-96.0); PLATELET COUNT, AUTOMATED 206 10^3/uL (150-450); RED BLOOD COUNT 3.81 10^6/uL (4.00-5.40); RED CELL DISTRIBUTION WIDTH 13.4 % (11.5-14.5); WHITE BLOOD COUNT 10.8 10^3/uL (4.0-10.0)
[2018-08-22] MEDS: OXYTOCIN DRIP 30 UNITS in APPROPRIATE DILUENT 1 EA IV (19:49)
[2018-08-22] MEDS ORDERED: FENTANYL 2MCG/ML ROPIVACAINE 0.2% IN 0.9% NACL 200ML IVBAG As Ordered (23:09)
[2018-08-23] MEDS ORDERED: EPIDURAL/PCA KEYS XX (00:45)
[2018-08-23] MEDS ORDERED: ePHEDrine SULFATE 25 MG/5 ML(5MG/ML) SYRINGE IV (00:45)
[2018-08-23] MEDS ORDERED: diphenhydrAMINE INJ 50MG/ML VIAL (J1200) IV (00:45)
[2018-08-23] MEDS ORDERED: EPIDURAL COMMENT XX (00:45)
[2018-08-23] MEDS ORDERED: FENTANYL/ROPIVACAINE/NACL BAG 200 ML EPIDURAL (00:45)
[2018-08-23] MEDS ORDERED: ONDANSETRON 4MG/2ML VIAL (J2405) IV ×2 (00:45→04:15)
[2018-08-23] MEDS ORDERED: REFRIGERATOR IV KEYS XX (00:45)
[2018-08-23] MEDS ORDERED: NALOXONE INJ 0.4 MG/1 ML VIAL (J2310) IV (00:45)
[2018-08-23] MEDS ORDERED: LACTATED RINGER'S 1000 ML IV (00:45)
[2018-08-23] MEDS ORDERED: MEASLES,MUMPS,RUBELLA VACCINE INJ (MMR-II) (90707) SC (04:15)
[2018-08-23] MEDS ORDERED: DOCUSATE SODIUM 100 MG CAP PO (04:15)
[2018-08-23] MEDS ORDERED: DIBUCAINE 1% OINTMENT 30GM TOP (04:15)
[2018-08-23] MEDS: OXYTOCIN DRIP 30 UNITS in APPROPRIATE DILUENT 1 EA IV (04:15)
[2018-08-23] MEDS ORDERED: RHOGAM 300 MCG (1500 IU) INJ (J2790) IM (04:15)
[2018-08-23] MEDS ORDERED: METHYLERGONOVINE MALEATE 0.2 MG TAB PO (04:15)
[2018-08-23] MEDS: CitaloPRAM (CeleXA) 20 MG TAB PO (08:31)
[2018-08-23] MEDS: IBUPROFEN 800 MG TAB PO ×2 (08:31→20:02)
[2018-08-23] MEDS: PRENATAL VITAMINS CHEWABLE TABLET PO (08:31)
[2018-08-24] MEDS: IBUPROFEN 800 MG TAB PO ×3 (05:38→22:19)
[2018-08-24] MEDS: CitaloPRAM (CeleXA) 20 MG TAB PO (08:19)
[2018-08-24] MEDS: PRENATAL VITAMINS CHEWABLE TABLET PO (08:19)
[2018-08-24] MEDS: ACETAMINOPHEN 500 MG TAB PO ×2 (08:19→16:54)
[2018-08-25] MEDS: ACETAMINOPHEN 500 MG TAB PO ×2 (03:26→12:49)
[2018-08-25 08:21] LABS: ALBUMIN 2.4 GM/DL (3.2-5.2); ALBUMIN/GLOBULIN RATIO 0.73 (1.00-1.93); ALKALINE PHOSPHATASE 163 U/L (45-117); ALT/SGPT 22 U/L (12-78); ANION GAP 6 MEQ/L (8-16); AST/SGOT 21 U/L (7-37); BILIRUBIN,TOTAL 0.2 MG/DL (0.2-1.0); BLOOD UREA NITROGEN 10 MG/DL (7-18); CALCIUM LEVEL 8.2 MG/DL (8.5-10.1); CARBON DIOXIDE LEVEL 27 MEQ/L (21-32); CHLORIDE LEVEL 106 MEQ/L (98-107); CREATININE FOR GFR 0.62 MG/DL (0.55-1.30); GLOMERULAR FILTRATION RATE > 60.0 (>60); GLUCOSE, FASTING 79 MG/DL (70-100); LDH LACTATE DEHYDROGENASE 220 U/L (84-246); POTASSIUM SERUM 4.1 MEQ/L (3.5-5.1); SODIUM LEVEL 139 MEQ/L (136-145); TOTAL PROTEIN 5.7 GM/DL (6.4-8.2); URIC ACID 5.9 MG/DL (2.6-6.0)
[2018-08-25] MEDS: IBUPROFEN 800 MG TAB PO (08:24)
[2018-08-25] MEDS: CitaloPRAM (CeleXA) 20 MG TAB PO (08:24)
[2018-08-25] MEDS: PRENATAL VITAMINS CHEWABLE TABLET PO (08:24)
[2018-08-25 08:35] LABS: HEMATOCRIT 30.3 % (36.0-47.0); MEAN CORPUSCULAR HEMOGLOBIN 31.2 pg (27.0-33.0); MEAN CORPUSCULAR VOLUME 94.4 fl (80.0-96.0); PLATELET COUNT, AUTOMATED 187 10^3/uL (150-450); RED BLOOD COUNT 3.21 10^6/uL (4.00-5.40); RED CELL DISTRIBUTION WIDTH 13.8 % (11.5-14.5); WHITE BLOOD COUNT 16.7 10^3/uL (4.0-10.0)
[2018-08-25 09:02] LABS: TOTAL PROTEIN,RANDOM URINE 12.6 MG/DL (0.0-12.0)
== END 2018-08-25 13:40 | disposition home or self-care (01) | DRG 560 ==
LOC: M LDO 18:13 → M OBS 08-23 08:39 → M LDI 18:44
PROVIDERS: Specialist
PROC: 10E0XZZ Delivery of Products of Conception, External Approach (ICD-10-PCS; principal; 2018-08-23)
DX: O99.334 Smoking (tobacco) complicating childbirth (principal); O69.81X0 Labor and delivery complicated by cord around neck, without compression, not applicable or unspecified; Z3A.39 39 weeks gestation of pregnancy; Z37.0 Single live birth; F17.210 Nicotine dependence, cigarettes, uncomplicated

== ENCOUNTER 2018-10-03 17:32 | Emergency (ER) | payer OTHER ==
[~2018-10-03] VITALS: Ht 170.2 cm; Wt 79.5 kg
[~2018-10-03 17:32] MED LIST changes: -ACET50TA PO; +ANUS2.5C2 TOP; +CITA-230 PO; +COLA100C5 PO; +MAPA500T2 PO; +OXYC1TAB23 PO
[2018-10-03] MEDS ORDERED: NS 1,000 ML IV ONE (17:45)
[2018-10-03 18:07] LABS: BASO # 0.1 10^3/uL (0.0-0.2); BASO % 0.6 % (0.0-1.0); EOS # 0.3 10^3/uL (0.0-0.50); EOS % 3.2 % (0.0-3.0); HEMATOCRIT 35.3 % (36.0-47.0); HEMOGLOBIN 11.8 g/dl (12.0-15.5); MEAN CORPUSCULAR HEMOGLOBIN 30.1 pg (27.0-33.0); MEAN CORPUSCULAR HGB CONC 33.4 g/dl (32.0-36.5); MEAN CORPUSCULAR VOLUME 90.1 fl (80.0-96.0); MONO # 0.5 10^3/uL (0.0-0.8); MONO % 6.9 % (0.0-5.0); NEUTROPHILS % 64.2 % (36.0-66.0); PLATELET COUNT, AUTOMATED 280 10^3/uL (150-450); RED BLOOD COUNT 3.92 10^6/uL (4.00-5.40); WHITE BLOOD COUNT 7.9 10^3/uL (4.0-10.0)
[2018-10-03 18:24] LABS: BLOOD UREA NITROGEN 16 MG/DL (7-18); CALCIUM LEVEL 8.8 MG/DL (8.5-10.1); CARBON DIOXIDE LEVEL 26 MEQ/L (21-32); CHLORIDE LEVEL 107 MEQ/L (98-107); CREATININE FOR GFR 0.71 MG/DL (0.55-1.30); GLOMERULAR FILTRATION RATE > 60.0 (>60); GLUCOSE, FASTING 96 MG/DL (70-100); SODIUM LEVEL 140 MEQ/L (136-145)
[2018-10-03 18:26] LABS: INR 0.98
[2018-10-03 18:27] LABS: PARTIAL THROMBOPLASTIN TIME 27.7 SECONDS (25.4-37.6)
--- NOTE | 2018-10-03 19:37 | REPVR ---
EXAM: US Pelvis Complete, Transabdominal and US Pelvis, Transvaginal EXAM DATE/TIME: 10/03/2018 6:35 PM CLINICAL HISTORY: 23 years old, female; Signs and symptoms; Other: Vaginal bleeding; Additional info: Possible retained products of conception, vaginal bleeding TECHNIQUE: Real-time transabdominal and transvaginal pelvic ultrasound (complete) with image documentation. Transvaginal imaging was used for better evaluation of the endometrium and adnexa. COMPARISON: CT ABD PELVIS WITH CONTRAST 08/30/2016 2:21 AM FINDINGS: Uterus/cervix: Uterus measures 9.6 x 5.1 x 7.2 cm. Endometrial echo complex 7.9 mm. Right adnexa: Right ovary measures 3.4 x 1.3 x 1.4 cm. Normal vascularity. Left adnexa: Left ovary measures 3 x 1.5 x 1.5 cm. Normal vascularity. Free fluid: None. Bladder: Normal. IMPRESSION: Unremarkable examination. Electronically signed by: Christopher Betts On 10/03/2018 19:37:12 PM
[2018-10-03] MEDS ORDERED: IBUP-1022 PO (19:52)
[2018-10-03] MEDS ORDERED: KETOROLAC 30 MG/ML VIAL (J1885) IV ONE (20:00)
[2018-10-03 20:12] VITALS: BP 122/68
== END 2018-10-03 20:21 | disposition home or self-care (01) ==
LOC: M ED 17:32
DX: N93.8 Other specified abnormal uterine and vaginal bleeding (principal); R51 Headache
CPT/HCPCS: 36415; 76830; 76856; 80048; 85025; 85610; 85730; 86850; 86900; 86901; 93976; 96361; 96374; 99284; J1885

== ENCOUNTER → 2019-09-10 | Outpatient (REF) | payer OTHER ==
[~2019-09-10] MED LIST changes: +AUGM875T28 PO; -CITA-230 PO; +CITA20TA7 PO; +IBUP-1022 PO; +IBUP80TA PO
== END ==
LOC: M LAB REF 13:30
PROVIDERS: ATTEND Nurse Practitioner Family
DX: R19.7 Diarrhea, unspecified (principal)

== ENCOUNTER → 2019-11-06 | Outpatient (REF) | payer OTHER ==
[2019-11-06 23:30] LABS: INFLUENZA A AMPLIFICATION NEGATIVE (NEGATIVE); INFLUENZA B AMPLIFICATION NEGATIVE (NEGATIVE)
== END ==
LOC: M LAB REF 22:44
PROVIDERS: ATTEND Physician Assistant Medical
DX: J11.1 Influenza due to unidentified influenza virus with other respiratory manifestations (principal)

== ENCOUNTER → 2020-04-12 | Outpatient (REF) | payer OTHER | LOC: M LAB REF 17:02 | PROVIDERS: ATTEND Physician Assistant Medical | DX: Z03.818 Encounter for observation for suspected exposure to other biological agents ruled out (principal); Z11.59 Encounter for screening for other viral diseases ==

== ENCOUNTER 2020-05-04 07:56 | Emergency (ER) | payer OTHER ==
[2020-05-04] MEDS ORDERED: ISOVUE-370 76% 100ML VIAL ONE (10:34)
[2020-06-09 20:12] LABS: AMORPHOUS SEDIMENT SMALL (NEGATIVE); APPEARANCE, URINE CLOUDY (CLEAR); BACTERIA, URINE AUTO NEGATIVE (NEGATIVE); BILIRUBIN, URINE AUTO NEGATIVE (NEGATIVE); BLOOD, URINE BLOOD 2+ (NEGATIVE); COLOR, URINE YELLOW (YELLOW); GLUCOSE, URINE (UA) AUTO NEGATIVE (NEGATIVE); KETONE, URINE AUTO NEGATIVE (NEGATIVE); LEUKOCYTE ESTERASE, URINE AUTO 3+ (NEGATIVE); MUCUS, URINE SMALL (NEGATIVE); NITRITE, URINE AUTO POSITIVE (NEGATIVE); PROTEIN, URINE AUTO 2+ mg/dL (NEGATIVE); RBC, URINE AUTO 145 /HPF (0-3); SPECIFIC GRAVITY URINE AUTO 1.014 (1.002-1.035); SQUAMOUS EPITHELIAL CELL UR AU 6 /HPF (0-6); UROBILINOGEN, URINE AUTO 0.2 mg/dL (0.0-2.0); WBC, URINE AUTO 167 /HPF (0-3)
[2020-06-09 21:36] LABS: BASO # 0.1 10^3/uL (0.0-0.2); BASO % 0.4 % (0.0-1.0); EOS # 0.1 10^3/uL (0.0-0.5); EOS % 0.8 % (0.0-3.0); HEMATOCRIT 38.3 % (36.0-47.0); HEMOGLOBIN 12.6 g/dl (12.0-15.5); LYMPH % 17.6 % (24.0-44.0); MEAN CORPUSCULAR HGB CONC 32.9 g/dl (32.0-36.5); MONO # 0.9 10^3/uL (0.0-0.8); MONO % 7.8 % (0.0-5.0); NEUTROPHILS # 8.5 10^3/uL (1.5-8.5); NEUTROPHILS % 73.1 % (36.0-66.0); PLATELET COUNT, AUTOMATED 280 10^3/uL (150-450); RED BLOOD COUNT 4.35 10^6/uL (4.00-5.40); WHITE BLOOD COUNT 11.6 10^3/uL (4.0-10.0)
[2020-07-14 11:47] LABS: ALBUMIN 3.9 GM/DL (3.2-5.2); ALT/SGPT 17 U/L (12-78); BILIRUBIN,DIRECT 0.1 MG/DL (0.0-0.2); BILIRUBIN,TOTAL 0.5 MG/DL (0.2-1.0); BLOOD UREA NITROGEN 11 MG/DL (7-18); CALCIUM LEVEL 8.4 MG/DL (8.5-10.1); CARBON DIOXIDE LEVEL 27 MEQ/L (21-32); CHLORIDE LEVEL 107 MEQ/L (98-107); CREATININE FOR GFR 0.72 MG/DL (0.55-1.30); GLOMERULAR FILTRATION RATE > 60.0 (>60); GLUCOSE, FASTING 90 MG/DL (70-100); LIPASE 59 U/L (73-393); POTASSIUM SERUM 3.6 MEQ/L (3.5-5.1); SODIUM LEVEL 138 MEQ/L (136-145); TOTAL PROTEIN 7.4 GM/DL (6.4-8.2)
== END 2020-05-04 11:50 | disposition home or self-care (01) ==
LOC: M ED 07:56
DX: N39.0 Urinary tract infection, site not specified (principal); F17.210 Nicotine dependence, cigarettes, uncomplicated
CPT/HCPCS: 74177; 80048; 80076; 81001; 83690; 84703; 85025; 87088; 87186; 96374; 96375; 99283; Q9967

== ENCOUNTER → 2020-06-28 | Outpatient (REF) | payer OTHER ==
[2020-06-28 17:25] LABS: APPEARANCE, URINE CLOUDY (CLEAR); BACTERIA, URINE AUTO 1+ (NEGATIVE); BILIRUBIN, URINE AUTO NEGATIVE (NEGATIVE); BLOOD, URINE BLOOD NEGATIVE (NEGATIVE); COLOR, URINE YELLOW (YELLOW); GLUCOSE, URINE (UA) AUTO NEGATIVE (NEGATIVE); KETONE, URINE AUTO TRACE mg/dL (NEGATIVE); LEUKOCYTE ESTERASE, URINE AUTO 3+ (NEGATIVE); MUCUS, URINE SMALL (NEGATIVE); NITRITE, URINE AUTO NEGATIVE (NEGATIVE); PROTEIN, URINE AUTO NEGATIVE (NEGATIVE); RBC, URINE AUTO 1 /HPF (0-3); SPECIFIC GRAVITY URINE AUTO 1.024 (1.002-1.035); SQUAMOUS EPITHELIAL CELL UR AU 16 /HPF (0-6); UROBILINOGEN, URINE AUTO 0.2 mg/dL (0.0-2.0); WBC, URINE AUTO 20 /HPF (0-3)
== END ==
LOC: M LAB REF 16:59
PROVIDERS: ATTEND Physician Assistant
DX: Z11.3 Encounter for screening for infections with a predominantly sexual mode of transmission (principal)

== ENCOUNTER 2021-06-14 04:12 | Emergency (ER) | payer OTHER ==
[~2021-06-14] VITALS: Ht 172.7 cm; Wt 89.0 kg
[2021-06-14] MEDS ORDERED: ACET-910 PO (07:04)
[2021-06-14] MEDS ORDERED: NORE1PAT (07:04)
[2021-06-14] MEDS ORDERED: FLON1SPR NARES (08:15)
[2021-06-14] MEDS ORDERED: PSEU120T19 PO (08:15)
[2021-06-14] MEDS ORDERED: ALL10TAB2 PO (08:15)
[2021-06-14 08:26] VITALS: BP 139/76
== END 2021-06-14 08:27 | disposition home or self-care (01) ==
LOC: M ED 04:12
DX: R09.81 Nasal congestion (principal); Z79.3 Long term (current) use of hormonal contraceptives

== ENCOUNTER → 2021-06-24 | Outpatient (REF) | payer OTHER ==
[~2021-06-24] MED LIST changes: +ACET-910 PO; +ALL10TAB2 PO; +FLON1SPR NARES; +NORE1PAT; +PSEU120T19 PO
== END ==
LOC: M LAB REF 16:17
PROVIDERS: ATTEND Otolaryngology
DX: R07.0 Pain in throat (principal)

== ENCOUNTER 2021-10-26 02:20 | Emergency (ER) | payer OTHER, MEDICAID ==
[~2021-10-26] VITALS: Ht 172.7 cm; Wt 84.5 kg
[2021-10-26 02:21] VITALS: BP 121/71
== END 2021-10-26 03:38 | disposition left against medical advice (07) ==
LOC: M ED 02:20
DX: Z53.21 Procedure and treatment not carried out due to patient leaving prior to being seen by health care provider (principal)

== ENCOUNTER → 2022-02-02 | Outpatient (CLI) | payer OTHER, MEDICAID | LOC: M LABSMTC 09:51 | PROVIDERS: ATTEND Anesthesiology | DX: Z01.818 Encounter for other preprocedural examination (principal); Z11.52 Encounter for screening for COVID-19 ==

== ENCOUNTER 2022-02-06 10:28 | Day surgery (SDC) | payer OTHER ==
[~2022-02-06] VITALS: Ht 172.7 cm; Wt 82.0 kg
[~2022-02-06 10:28] MED LIST changes: +NS 1,000 ML IV ONE
[2022-02-06] MEDS ORDERED: fentaNYL 100 MCG/2 ML INJECTION As Ordered ONE (12:33)
[2022-02-06] MEDS ORDERED: propofoL 200 MG/20 ML VIAL As Ordered ONE (12:34)
[2022-02-06] MEDS ORDERED: LIDOCAINE 2% 100MG/5ML SDV (FOR ANES.) As Ordered ONE (12:34)
[2022-02-06 13:29] VITALS: BP 127/70
== END 2022-02-06 13:35 | disposition home or self-care (01) ==
LOC: M OPP 10:28
PROVIDERS: ATTEND Internal Medicine Gastroenterology
DX: K59.00 Constipation, unspecified (principal); K64.8 Other hemorrhoids; Z80.0 Family history of malignant neoplasm of digestive organs; K21.00 Gastro-esophageal reflux disease with esophagitis, without bleeding; K29.70 Gastritis, unspecified, without bleeding; R12 Heartburn; Z79.899 Other long term (current) drug therapy; F17.210 Nicotine dependence, cigarettes, uncomplicated
CPT/HCPCS: 43239; 45378; 81025; 88305; J3010

== ENCOUNTER → 2022-02-11 | Outpatient (REF) | payer OTHER ==
[~2022-02-11] MED LIST changes: -NS 1,000 ML IV ONE
== END ==
LOC: M LAB REF 12:23
PROVIDERS: ATTEND Physician Assistant
DX: J09.X2 Influenza due to identified novel influenza A virus with other respiratory manifestations (principal)

== ENCOUNTER → 2022-03-15 | Outpatient (REF) | payer OTHER | LOC: M LAB REF 17:04 | PROVIDERS: ATTEND Physician Assistant | DX: R05.9 Cough, unspecified (principal); R50.9 Fever, unspecified ==

== ENCOUNTER 2022-04-06 09:40 | Emergency (ER) | payer OTHER ==
[~2022-04-06] VITALS: Ht 172.7 cm; Wt 76.6 kg
[2022-04-06 11:01] LABS: BASO % 0.6 % (0.0-1.0); EOS # 0.1 10^3/uL (0.0-0.5); EOS % 1.3 % (0.0-3.0); HEMATOCRIT 40.5 % (36.0-47.0); HEMOGLOBIN 13.7 g/dl (12.0-15.5); LYMPH # 1.8 10^3/uL (1.5-5.0); LYMPH % 33.6 % (24.0-44.0); MEAN CORPUSCULAR HEMOGLOBIN 29.9 pg (27.0-33.0); MEAN CORPUSCULAR HGB CONC 33.8 g/dl (32.0-36.5); MEAN CORPUSCULAR VOLUME 88.4 fl (80.0-96.0); MONO # 0.4 10^3/uL (0.0-0.8); MONO % 6.5 % (2.0-8.0); NEUTROPHILS # 3.1 10^3/uL (1.5-8.5); NEUTROPHILS % 57.8 % (36.0-66.0); PLATELET COUNT, AUTOMATED 273 10^3/uL (150-450); RED BLOOD COUNT 4.58 10^6/uL (4.00-5.40); WHITE BLOOD COUNT 5.4 10^3/uL (4.0-10.0)
[2022-04-06 11:25] LABS: ALBUMIN 3.8 GM/DL (3.2-5.2); ALT/SGPT 20 U/L (12-78); BILIRUBIN,DIRECT 0.2 MG/DL (0.0-0.2); BILIRUBIN,TOTAL 0.6 MG/DL (0.2-1.0); BLOOD UREA NITROGEN 6 MG/DL (7-18); CALCIUM LEVEL 9.2 MG/DL (8.5-10.1); CARBON DIOXIDE LEVEL 24 MEQ/L (21-32); CHLORIDE LEVEL 107 MEQ/L (98-107); CREATININE FOR GFR 0.76 MG/DL (0.55-1.30); GLOMERULAR FILTRATION RATE > 60.0 (>60); GLUCOSE, FASTING 104 MG/DL (70-100); HCG, SERUM QUALITATIVE NEGATIVE (NEGATIVE); LIPASE 74 U/L (73-393); SODIUM LEVEL 140 MEQ/L (136-145); TOTAL PROTEIN 7.8 GM/DL (6.4-8.2)
[2022-04-06] MEDS ORDERED: ONDANSETRON 4MG ORAL DISINTEGRATING TAB PO ONE (11:50)
[2022-04-06 13:28] LABS: GC DNA AMPLIFICATION NEGATIVE (NEGATIVE)
[2022-04-06 13:52] VITALS: BP 131/77
== END 2022-04-06 13:57 | disposition home or self-care (01) ==
LOC: M ED 09:40
DX: N93.9 Abnormal uterine and vaginal bleeding, unspecified (principal); R11.2 Nausea with vomiting, unspecified; R53.83 Other fatigue; Z86.19 Personal history of other infectious and parasitic diseases; K21.9 Gastro-esophageal reflux disease without esophagitis; F17.200 Nicotine dependence, unspecified, uncomplicated; Z79.3 Long term (current) use of hormonal contraceptives

== ENCOUNTER → 2022-07-31 | Outpatient (REF) | payer OTHER ==
[2022-07-31 13:21] LABS: APPEARANCE, URINE MANUAL HAZY (CLEAR); BILIRUBIN, URINE MANUAL NEGATIVE (NEGATIVE); COLOR, URINE MANUAL LT YELLOW (YELLOW); GLUCOSE, URINE (UA) MANUAL NEGATIVE (NEGATIVE); KETONE, URINE MANUAL NEGATIVE (NEGATIVE); PROTEIN, URINE MANUAL NEGATIVE (NEGATIVE); SPECIFIC GRAVITY,URINE MANUAL 1.015 (1.002-1.035); UROBILINOGEN, URINE MANUAL NORMAL (NORMAL)
[2022-07-31 13:22] LABS: BLOOD URINE MANUAL TRACE (NEGATIVE); LEUKOCYTE ESTERASE, URINE MAN POSITIVE (NEGATIVE); NITRITE, URINE MANUAL NEGATIVE (NEGATIVE)
[2022-07-31 13:37] LABS: AMORPHOUS SEDIMENT, URINE SMALL AMOUNT (NEGATIVE); BACTERIA, URINE LARGE AMOUNT; HYALINE CAST, URINE NONE SEEN /lpf (0-1); MUCUS, URINE MOD AMOUNT (NEGATIVE); RBC, URINE 0-1 /hpf (0-3); SQUAMOUS EPITHELIAL CELL URINE LARGE AMOUNT /hpf (SMALL AMT)
[2022-07-31 14:50] LABS: GC DNA AMPLIFICATION NEGATIVE (NEGATIVE)
== END ==
LOC: M LAB REF 12:07
PROVIDERS: ATTEND Physician Assistant
DX: N39.0 Urinary tract infection, site not specified (principal); Z20.2 Contact with and (suspected) exposure to infections with a predominantly sexual mode of transmission

== ENCOUNTER → 2022-09-13 | Outpatient (CLI) | payer OTHER ==
[~2022-09-13] MED LIST changes: +MIRA3350 PO; +PANT40TA29 PO
== END ==
LOC: M LABSMTC 09:28
PROVIDERS: ATTEND Anesthesiology
DX: Z01.812 Encounter for preprocedural laboratory examination (principal); Z20.822 Contact with and (suspected) exposure to COVID-19

== ENCOUNTER 2022-09-18 08:10 | Day surgery (SDC) | payer OTHER ==
[~2022-09-18] VITALS: Ht 172.7 cm; Wt 73.4 kg
[~2022-09-18 08:10] MED LIST changes: +NS 1,000 ML IV ONE; +propofoL 200 MG/20 ML VIAL As Ordered ONE
[2022-09-18 11:51] VITALS: BP 129/63
[2022-09-18] MEDS ORDERED: fentaNYL 100 MCG/2 ML INJECTION As Ordered ONE (11:56)
== END 2022-09-18 12:04 | disposition home or self-care (01) ==
LOC: M OPP 08:10
PROVIDERS: ATTEND Internal Medicine Gastroenterology
DX: K31.89 Other diseases of stomach and duodenum (principal); K21.00 Gastro-esophageal reflux disease with esophagitis, without bleeding; Z80.0 Family history of malignant neoplasm of digestive organs; Z79.1 Long term (current) use of non-steroidal anti-inflammatories (NSAID); Z79.3 Long term (current) use of hormonal contraceptives; Z79.899 Other long term (current) drug therapy; F32.9 Major depressive disorder, single episode, unspecified; F41.9 Anxiety disorder, unspecified; G43.909 Migraine, unspecified, not intractable, without status migrainosus; Z72.0 Tobacco use
CPT/HCPCS: 43239; 88305; 91035; J3010

== ENCOUNTER → 2022-11-23 | Outpatient (REF) | payer OTHER ==
[~2022-11-23] MED LIST changes: -NS 1,000 ML IV ONE; -propofoL 200 MG/20 ML VIAL As Ordered ONE
[2022-11-23 21:21] LABS: APPEARANCE, URINE HAZY (CLEAR); BACTERIA, URINE AUTO 1+ (NEGATIVE); BILIRUBIN, URINE AUTO NEGATIVE (NEGATIVE); BLOOD, URINE BLOOD NEGATIVE (NEGATIVE); COLOR, URINE YELLOW (YELLOW); GLUCOSE, URINE (UA) AUTO NEGATIVE (NEGATIVE); KETONE, URINE AUTO NEGATIVE (NEGATIVE); LEUKOCYTE ESTERASE, URINE AUTO NEGATIVE (NEGATIVE); MUCUS, URINE SMALL (NEGATIVE); NITRITE, URINE AUTO NEGATIVE (NEGATIVE); PROTEIN, URINE AUTO NEGATIVE (NEGATIVE); RBC, URINE AUTO 1 /HPF (0-3); SPECIFIC GRAVITY URINE AUTO 1.027 (1.002-1.035); SQUAMOUS EPITHELIAL CELL UR AU 14 /HPF (0-6); WBC, URINE AUTO 2 /HPF (0-3)
== END ==
LOC: M LAB REF 21:05
PROVIDERS: ATTEND Physician Assistant Medical
DX: N39.0 Urinary tract infection, site not specified (principal)

== ENCOUNTER → 2022-11-30 | Outpatient (REF) | payer OTHER ==
[2022-12-01 11:22] LABS: GC DNA AMPLIFICATION NEGATIVE (NEGATIVE)
== END ==
LOC: M LAB REF 09:18
PROVIDERS: ATTEND Physician Assistant
DX: R10.30 Lower abdominal pain, unspecified (principal)

== ENCOUNTER → 2023-01-12 | Outpatient (REF) | payer OTHER | LOC: M LAB REF 16:24 | PROVIDERS: ATTEND Physician Assistant Medical | DX: J02.9 Acute pharyngitis, unspecified (principal) ==

== ENCOUNTER 2023-02-26 16:39 | Emergency (ER) | payer OTHER ==
[~2023-02-26] VITALS: Ht 172.7 cm; Wt 77.8 kg
[2023-02-26] MEDS ORDERED: AMIT25TA17 PO (16:49)
[2023-02-26 18:51] LABS: BASO # 0.1 10^3/uL (0.0-0.2); BASO % 0.7 % (0.0-1.0); EOS # 0.1 10^3/uL (0.0-0.5); EOS % 1.3 % (0.0-3.0); HEMATOCRIT 38.8 % (36.0-47.0); HEMOGLOBIN 13.2 g/dl (12.0-15.5); LYMPH # 2.4 10^3/uL (1.5-5.0); LYMPH % 26.9 % (24.0-44.0); MEAN CORPUSCULAR HEMOGLOBIN 30.1 pg (27.0-33.0); MEAN CORPUSCULAR VOLUME 88.4 fl (80.0-96.0); MONO # 0.5 10^3/uL (0.0-0.8); MONO % 5.4 % (2.0-8.0); NEUTROPHILS # 5.7 10^3/uL (1.5-8.5); NEUTROPHILS % 65.5 % (36.0-66.0); PLATELET COUNT, AUTOMATED 273 10^3/uL (150-450); RED BLOOD COUNT 4.39 10^6/uL (4.00-5.40); WHITE BLOOD COUNT 8.8 10^3/uL (4.0-10.0)
[2023-02-26 19:13] LABS: LIPASE 36 U/L (12-53)
[2023-02-26 19:15] LABS: ALKALINE PHOSPHATASE 60 U/L (46-116); ALT/SGPT 15 U/L (7.0-40); AST/SGOT 11 U/L (<34); BILIRUBIN,DIRECT 0.1 MG/DL (<0.4); BILIRUBIN,TOTAL 0.4 MG/DL (0.3-1.2); BLOOD UREA NITROGEN 12 MG/DL (9-23); CALCIUM LEVEL 9.3 MG/DL (8.5-10.1); CARBON DIOXIDE LEVEL 27 MMOL/L (20-31); CHLORIDE LEVEL 104 MMOL/L (98-107); CREATININE FOR GFR 0.78 MG/DL (0.55-1.30); GLOMERULAR FILTRATION RATE > 60.0 (>60); GLUCOSE, FASTING 95 MG/DL (60-100); POTASSIUM SERUM 4.2 MMOL/L (3.5-5.1); SODIUM LEVEL 138 MMOL/L (136-145); TOTAL PROTEIN 7.7 G/DL (5.7-8.2)
[2023-02-26 19:27] LABS: HCG, SERUM QUALITATIVE NEGATIVE (NEGATIVE)
[2023-02-26 19:44] LABS: MONO SCRN NEGATIVE (NEGATIVE)
[2023-02-26] MEDS ORDERED: ISOVUE-370 76% 100ML VIAL As Ordered ONE (20:00)
[2023-02-26 20:13] LABS: HEMOGLOBIN A1c 4.9 % (4.0-6.0)
[2023-02-26] MEDS ORDERED: ONDA4TAB6 PO (21:29)
[2023-02-26 22:15] VITALS: BP 124/84
== END 2023-02-26 22:17 | disposition home or self-care (01) ==
LOC: M ED 16:39
DX: R11.2 Nausea with vomiting, unspecified (principal); R19.7 Diarrhea, unspecified; F41.9 Anxiety disorder, unspecified; F32.A Depression, unspecified; K20.90 Esophagitis, unspecified without bleeding; F17.200 Nicotine dependence, unspecified, uncomplicated
CPT/HCPCS: 36415; 74177; 80048; 80076; 83036; 83690; 84703; 85025; 86308; 87880; 99284; Q9967

== ENCOUNTER → 2023-05-21 | Outpatient (CLI) | payer OTHER ==
[~2023-05-21] MED LIST changes: +AMIT25TA19 PO; +ONDA4TAB6 PO
[2023-05-21 08:46] LABS: ALBUMIN 3.5 G/DL (3.2-5.2); ALKALINE PHOSPHATASE 55 U/L (46-116); ALT/SGPT 14 U/L (7.0-40); AST/SGOT < 8 U/L (<34); BILIRUBIN,DIRECT 0.1 MG/DL (<0.4); BILIRUBIN,TOTAL 0.4 MG/DL (0.3-1.2)
[2023-05-21 09:21] LABS: HEPATITIS C VIRUS ABY INDEX 0.17 INDEX (<0.8)
[2023-05-25 12:08] LABS: HEPATITIS A IgG TOTAL Negative (Negative); IGASUB2 87.2 mg/dL (73.2-301.2); IGASUB3 26.5 mg/dL (13.4-97.9); IgA SERUM (part of Subclasses) 103 mg/dL (87-352); TISSUE TRANSGLUTAMINASE IgA 6 U/mL (0-3)
== END ==
LOC: M RAD 07:29
PROVIDERS: ATTEND Internal Medicine Gastroenterology
DX: R11.2 Nausea with vomiting, unspecified (principal)

== ENCOUNTER → 2023-05-22 | Outpatient (REF) | payer OTHER | LOC: M LAB REF 10:00 | PROVIDERS: ATTEND Internal Medicine Gastroenterology | DX: R11.2 Nausea with vomiting, unspecified (principal) ==

== ENCOUNTER → 2023-06-17 | Outpatient (REF) | payer OTHER | LOC: M LAB REF 21:25 | PROVIDERS: ATTEND Physician Assistant | DX: J02.9 Acute pharyngitis, unspecified (principal) ==

== ENCOUNTER → 2023-07-26 | Outpatient (REF) | payer OTHER ==
[2023-07-26 17:58] LABS: APPEARANCE, URINE CLOUDY (CLEAR); BACTERIA, URINE AUTO 2+ (NEGATIVE); BILIRUBIN, URINE AUTO NEGATIVE (NEGATIVE); BLOOD, URINE BLOOD NEGATIVE (NEGATIVE); COLOR, URINE AMBER (YELLOW); GLUCOSE, URINE (UA) AUTO NEGATIVE (NEGATIVE); KETONE, URINE AUTO TRACE mg/dL (NEGATIVE); LEUKOCYTE ESTERASE, URINE AUTO 3+ (NEGATIVE); MUCUS, URINE MODERATE (NEGATIVE); NITRITE, URINE AUTO NEGATIVE (NEGATIVE); PROTEIN, URINE AUTO 1+ mg/dL (NEGATIVE); RBC, URINE AUTO 3 /HPF (0-3); SPECIFIC GRAVITY URINE AUTO 1.018 (1.002-1.035); SQUAMOUS EPITHELIAL CELL UR AU 8 /HPF (0-6); UROBILINOGEN, URINE AUTO 0.2 mg/dL (0.0-2.0); WBC, URINE AUTO 75 /HPF (0-3)
== END ==
LOC: M LAB REF 16:23
PROVIDERS: ATTEND Physician Assistant Medical
DX: N39.0 Urinary tract infection, site not specified (principal)

== ENCOUNTER → 2023-08-04 | Outpatient (REF) | payer OTHER ==
[2023-08-04 21:45] LABS: APPEARANCE, URINE CLOUDY (CLEAR); BACTERIA, URINE AUTO NEGATIVE (NEGATIVE); BILIRUBIN, URINE AUTO NEGATIVE (NEGATIVE); BLOOD, URINE BLOOD 1+ (NEGATIVE); COLOR, URINE YELLOW (YELLOW); GLUCOSE, URINE (UA) AUTO NEGATIVE (NEGATIVE); KETONE, URINE AUTO NEGATIVE (NEGATIVE); LEUKOCYTE ESTERASE, URINE AUTO 3+ (NEGATIVE); MUCUS, URINE SMALL (NEGATIVE); NITRITE, URINE AUTO NEGATIVE (NEGATIVE); PROTEIN, URINE AUTO 2+ mg/dL (NEGATIVE); RBC, URINE AUTO 14 /HPF (0-3); SQUAMOUS EPITHELIAL CELL UR AU 10 /HPF (0-6); WBC, URINE AUTO TNTC /HPF (0-3)
== END ==
LOC: M LAB REF 21:11
PROVIDERS: ATTEND Physician Assistant
DX: N39.0 Urinary tract infection, site not specified (principal)

== ENCOUNTER → 2023-11-15 | Outpatient (REF) | payer OTHER ==
[2023-11-15 13:13] LABS: APPEARANCE, URINE HAZY (CLEAR); BACTERIA, URINE AUTO 1+ (NEGATIVE); BILIRUBIN, URINE AUTO NEGATIVE (NEGATIVE); BLOOD, URINE BLOOD NEGATIVE (NEGATIVE); COLOR, URINE YELLOW (YELLOW); GLUCOSE, URINE (UA) AUTO NEGATIVE (NEGATIVE); KETONE, URINE AUTO NEGATIVE (NEGATIVE); LEUKOCYTE ESTERASE, URINE AUTO 3+ (NEGATIVE); NITRITE, URINE AUTO NEGATIVE (NEGATIVE); PROTEIN, URINE AUTO NEGATIVE (NEGATIVE); RBC, URINE AUTO 1 /HPF (0-3); SPECIFIC GRAVITY URINE AUTO 1.015 (1.002-1.035); SQUAMOUS EPITHELIAL CELL UR AU 3 /HPF (0-6); UROBILINOGEN, URINE AUTO 0.2 mg/dL (0.0-2.0); WBC, URINE AUTO 16 /HPF (0-3)
== END ==
LOC: M LAB REF 12:03
PROVIDERS: ATTEND Physician Assistant Medical
DX: N39.0 Urinary tract infection, site not specified (principal)

== ENCOUNTER 2024-04-07 15:29 | Emergency (ER) | payer OTHER ==
[~2024-04-07] VITALS: Ht 172.7 cm; Wt 81.8 kg
[~2024-04-07 15:29] MED LIST changes: +ONDA-282 PO; -ONDA4TAB6 PO
[2024-04-07] MEDS ORDERED: LORA-1041 PO (15:47)
[2024-04-07] MEDS ORDERED: FLUC150T9 (15:47)
[2024-04-07] MEDS ORDERED: CEPHALEXIN (15:47)
[2024-04-07 17:13] LABS: BASO # 0.1 10^3/uL (0.0-0.2); BASO % 0.6 % (0.0-1.0); EOS # 0.1 10^3/uL (0.0-0.5); HEMOGLOBIN 12.8 g/dl (12.0-15.5); LYMPH # 2.4 10^3/uL (1.5-5.0); LYMPH % 25.8 % (24.0-44.0); MEAN CORPUSCULAR HEMOGLOBIN 29.6 pg (27.0-33.0); MEAN CORPUSCULAR HGB CONC 33.7 g/dl (32.0-36.5); MONO # 0.6 10^3/uL (0.0-0.8); MONO % 6.3 % (2.0-8.0); NEUTROPHILS # 6.2 10^3/uL (1.5-8.5); PLATELET COUNT, AUTOMATED 279 10^3/uL (150-450); RED BLOOD COUNT 4.32 10^6/uL (4.00-5.40); WHITE BLOOD COUNT 9.3 10^3/uL (4.0-10.0)
[2024-04-07 17:31] LABS: LIPASE 33 U/L (12-53)
[2024-04-07] MEDS: NS 1,000 ML IV ONE (17:31)
[2024-04-07] MEDS: ONDANSETRON 4MG 2ML VIAL IV ONE (17:31)
[2024-04-07] MEDS: PANTOPRAZOLE 40MG VIAL IV ONE (17:31)
[2024-04-07 17:33] LABS: ALBUMIN 3.8 G/DL (3.2-5.2); ALKALINE PHOSPHATASE 75 U/L (46-116); ALT/SGPT 39 U/L (7.0-40); AST/SGOT 20 U/L (<34); BILIRUBIN,DIRECT 0.1 MG/DL (<0.4); BILIRUBIN,TOTAL 0.5 MG/DL (0.3-1.2); BLOOD UREA NITROGEN 10 MG/DL (9-23); CARBON DIOXIDE LEVEL 27 MMOL/L (20-31); CHLORIDE LEVEL 104 MMOL/L (98-107); CREATININE FOR GFR 0.71 MG/DL (0.55-1.30); GLOMERULAR FILTRATION RATE > 60.0 (>60); GLUCOSE, FASTING 94 MG/DL (60-100); POTASSIUM SERUM 4.2 MMOL/L (3.5-5.1); SODIUM LEVEL 136 MMOL/L (136-145); TOTAL PROTEIN 7.2 G/DL (5.7-8.2)
[2024-04-07] MEDS ORDERED: MACR100C43 PO (19:36)
[2024-04-07 19:41] VITALS: BP 124/76; TEMP 97.7; O2SAT 100
== END 2024-04-07 20:03 | disposition home or self-care (01) ==
LOC: M ED 15:29
DX: N39.0 Urinary tract infection, site not specified (principal); R10.9 Unspecified abdominal pain; F17.210 Nicotine dependence, cigarettes, uncomplicated; Z79.899 Other long term (current) drug therapy
CPT/HCPCS: 74176; 80048; 80076; 81001; 83690; 84702; 85025; 87086; 96361; 96374; 99284; J2405; J2470

== ENCOUNTER → 2024-07-07 | Outpatient (CLI) | payer OTHER ==
[~2024-07-07] MED LIST changes: +CEPHALEXIN; +FLUC150T9; +LORA-1041 PO; +MACR100C43 PO
== END ==
LOC: M SOG 14:52
PROVIDERS: ATTEND Physician Assistant
DX: M79.644 Pain in right finger(s) (principal)

== ENCOUNTER → 2024-07-07 | Outpatient (CLI) | payer OTHER | LOC: M SOG 07:24 | PROVIDERS: ATTEND Physician Assistant | DX: M79.644 Pain in right finger(s) (principal); Z53.9 Procedure and treatment not carried out, unspecified reason ==

== ENCOUNTER → 2024-07-18 | Outpatient (REF) | payer OTHER ==
[2024-07-18 14:25] LABS: AMORPHOUS SEDIMENT SMALL (NEGATIVE); APPEARANCE, URINE TURBID (CLEAR); BACTERIA, URINE AUTO NEGATIVE (NEGATIVE); BILIRUBIN, URINE AUTO NEGATIVE (NEGATIVE); BLOOD, URINE BLOOD NEGATIVE (NEGATIVE); CALCIUM OXALATE CRYSTALS SMALL; COLOR, URINE AMBER (YELLOW); GLUCOSE, URINE (UA) AUTO NEGATIVE (NEGATIVE); KETONE, URINE AUTO NEGATIVE (NEGATIVE); LEUKOCYTE ESTERASE, URINE AUTO 1+ (NEGATIVE); NITRITE, URINE AUTO NEGATIVE (NEGATIVE); PROTEIN, URINE AUTO NEGATIVE (NEGATIVE); RBC, URINE AUTO 0 /HPF (0-3); SPECIFIC GRAVITY URINE AUTO 1.023 (1.002-1.035); SQUAMOUS EPITHELIAL CELL UR AU 3 /HPF (0-6); WBC, URINE AUTO 2 /HPF (0-3)
== END ==
LOC: M LAB REF 12:35
PROVIDERS: ATTEND Physician Assistant Medical
DX: N39.0 Urinary tract infection, site not specified (principal)

== ENCOUNTER → 2024-07-31 | Outpatient (REF) | payer OTHER ==
[2024-07-31 20:35] LABS: APPEARANCE, URINE CLEAR (CLEAR); BACTERIA, URINE AUTO NEGATIVE (NEGATIVE); BILIRUBIN, URINE AUTO NEGATIVE (NEGATIVE); BLOOD, URINE BLOOD NEGATIVE (NEGATIVE); COLOR, URINE COLORLESS (YELLOW); GLUCOSE, URINE (UA) AUTO NEGATIVE (NEGATIVE); KETONE, URINE AUTO NEGATIVE (NEGATIVE); LEUKOCYTE ESTERASE, URINE AUTO NEGATIVE (NEGATIVE); NITRITE, URINE AUTO NEGATIVE (NEGATIVE); PROTEIN, URINE AUTO NEGATIVE (NEGATIVE); RBC, URINE AUTO 0 /HPF (0-3); SPECIFIC GRAVITY URINE AUTO 1.001 (1.002-1.035); SQUAMOUS EPITHELIAL CELL UR AU 1 /HPF (0-6); UROBILINOGEN, URINE AUTO 0.2 mg/dL (0.0-2.0); WBC, URINE AUTO 0 /HPF (0-3)
== END ==
LOC: M LAB REF 20:07
PROVIDERS: ATTEND Physician Assistant
DX: N39.0 Urinary tract infection, site not specified (principal)

== ENCOUNTER 2024-08-08 08:27 | Emergency (ER) | payer OTHER ==
[~2024-08-08] VITALS: Ht 172.7 cm; Wt 80.8 kg
[2024-08-08 11:12] LABS: BASO # 0.1 10^3/uL (0.0-0.2); BASO % 0.9 % (0.0-1.0); EOS # 0.2 10^3/uL (0.0-0.5); HEMATOCRIT 41.2 % (36.0-47.0); HEMOGLOBIN 13.7 g/dl (12.0-15.5); LYMPH # 2.5 10^3/uL (1.5-5.0); LYMPH % 31.7 % (24.0-44.0); MEAN CORPUSCULAR HEMOGLOBIN 29.6 pg (27.0-33.0); MEAN CORPUSCULAR HGB CONC 33.3 g/dl (32.0-36.5); MONO # 0.6 10^3/uL (0.0-0.8); MONO % 7.6 % (2.0-8.0); NEUTROPHILS # 4.6 10^3/uL (1.5-8.5); NEUTROPHILS % 57.5 % (36.0-66.0); PLATELET COUNT, AUTOMATED 310 10^3/uL (150-450); RED BLOOD COUNT 4.63 10^6/uL (4.00-5.40); WHITE BLOOD COUNT 7.9 10^3/uL (4.0-10.0)
[2024-08-08 11:34] LABS: HCG, SERUM QUALITATIVE NEGATIVE (NEGATIVE)
[2024-08-08 11:35] LABS: BLOOD UREA NITROGEN 7 MG/DL (9-23); CALCIUM LEVEL 9.2 MG/DL (8.5-10.1); CARBON DIOXIDE LEVEL 25 MMOL/L (20-31); CHLORIDE LEVEL 106 MMOL/L (98-107); CREATININE FOR GFR 0.63 MG/DL (0.55-1.30); GLOMERULAR FILTRATION RATE > 60.0 (>60); GLUCOSE, FASTING 87 MG/DL (60-100); POTASSIUM SERUM 4.2 MMOL/L (3.5-5.1); SODIUM LEVEL 138 MMOL/L (136-145)
[2024-08-08] MEDS ORDERED: PHEN1TAB73 PO (12:20)
[2024-08-08 12:30] VITALS: BP 122/75; TEMP 97.7; O2SAT 99
[2024-08-08 12:43] LABS: Trichomonas vaginalis (AMP) NOT DETECTED (NEGATIVE)
[2024-08-08 13:08] LABS: GC DNA AMPLIFICATION NEGATIVE (NEGATIVE)
== END 2024-08-08 12:32 | disposition home or self-care (01) ==
LOC: M ED 08:27
DX: R35.0 Frequency of micturition (principal); F32.A Depression, unspecified; Z79.899 Other long term (current) drug therapy

== ENCOUNTER 2024-08-31 15:22 | Emergency (ER) | payer OTHER ==
[~2024-08-31] VITALS: Ht 175.3 cm; Wt 82.2 kg
[~2024-08-31 15:22] MED LIST changes: +PHEN1TAB73 PO
[2024-08-31 17:07] LABS: URINE PREG TEST NEGATIVE (NEGATIVE)
[2024-08-31] MEDS ORDERED: IBUP-1022 PO (17:36)
[2024-08-31 17:56] LABS: Trichomonas vaginalis (AMP) NOT DETECTED (NEGATIVE)
[2024-08-31 18:15] VITALS: BP 121/81; TEMP 97.7; O2SAT 99
[2024-08-31 18:20] LABS: GC DNA AMPLIFICATION NEGATIVE (NEGATIVE)
[2024-08-31] MEDS ORDERED: METR0.7526 TOP (18:24)
== END 2024-08-31 18:37 | disposition home or self-care (01) ==
LOC: M ED 15:22
DX: N89.8 Other specified noninflammatory disorders of vagina (principal); Z79.1 Long term (current) use of non-steroidal anti-inflammatories (NSAID); Z79.899 Other long term (current) drug therapy

== ENCOUNTER → 2024-10-09 | Outpatient (REF) | payer OTHER ==
[~2024-10-09] MED LIST changes: +METR0.7526 TOP
[2024-10-09 18:57] LABS: AMORPHOUS SEDIMENT SMALL (NEGATIVE); APPEARANCE, URINE HAZY (CLEAR); BACTERIA, URINE AUTO NEGATIVE (NEGATIVE); BILIRUBIN, URINE AUTO NEGATIVE (NEGATIVE); BLOOD, URINE BLOOD NEGATIVE (NEGATIVE); COLOR, URINE YELLOW (YELLOW); GLUCOSE, URINE (UA) AUTO NEGATIVE (NEGATIVE); KETONE, URINE AUTO NEGATIVE (NEGATIVE); LEUKOCYTE ESTERASE, URINE AUTO NEGATIVE (NEGATIVE); NITRITE, URINE AUTO NEGATIVE (NEGATIVE); PROTEIN, URINE AUTO NEGATIVE (NEGATIVE); RBC, URINE AUTO 0 /HPF (0-3); SPECIFIC GRAVITY URINE AUTO 1.016 (1.002-1.035); SQUAMOUS EPITHELIAL CELL UR AU 4 /HPF (0-6); UROBILINOGEN, URINE AUTO 0.2 mg/dL (0.0-2.0); WBC, URINE AUTO 0 /HPF (0-3)
== END ==
LOC: M SMT 16:56
PROVIDERS: ATTEND Nurse Practitioner Family
DX: R39.15 Urgency of urination (principal)

== ENCOUNTER → 2024-11-06 | Outpatient (REF) | payer OTHER | LOC: M LAB REF 16:18 | PROVIDERS: ATTEND Physician Assistant Medical | DX: B34.9 Viral infection, unspecified (principal) ==

== ENCOUNTER → 2025-04-20 | Outpatient (REF) | payer OTHER | LOC: M LAB REF 16:59 | PROVIDERS: ATTEND Physician Assistant | DX: J02.9 Acute pharyngitis, unspecified (principal) ==